=== PATIENT | female | born 1980 | race Caucasian/White ===

== ENCOUNTER 2020-12-12 09:09 | Emergency (ER) | payer OTHER ==
[2020-12-12] MEDS ORDERED: levETIRAcetam in NS 100 ML ONE (09:11)
[2020-12-12] MEDS ORDERED: Lorazepam 2 MG/ML VIAL ONE (09:14)
[2020-12-12] MEDS ORDERED: Ondansetron PF 4 MG/2 ML Vial ONE (09:19)
[2020-12-12 09:38] LABS: #Basophils 0.1 thou/uL (0.0-0.2); #Eosinphils 0.2 thou/uL (0.0-0.7); #Lymphocytes 3.1 thou/uL (1.20-3.40); #Monocytes 0.6 thou/uL (0.11-0.59); #Neutrophils 2.5 thou/uL (1.40-6.50); %Basophils 1.2 % (0.0-1.0); %Eosinophils 2.6 % (0.0-10.0); %Lymphocytes 48.4 % (21.0-51.0); %Monocytes 8.5 % (0.0-10.0); %Neutrophils 39.3 % (42.0-75.0); Hemoglobin 13.5 g/dL (12.0-16.0); Mean Corpuscular Hemoglobin 31.9 pg (27.0-31.0); Mean Corpuscular Volume 96.6 fL (78.0-98.0); Mean Platelet Volume 6.6 fL (7.4-10.4); Platelet Count 464 thou/uL (130-400); RBC Distribution Width 11.3 % (11.5-14.5); Red Blood Cell (RBC) Count 4.22 mill/uL (4.20-5.40); White Blood Cell (WBC) Count 6.4 thou/uL (4.8-10.8)
[2020-12-12 09:41] LABS: BHCG - Serum Negative (NEGATIVE); Pregs Control Background? CLEAR/WHITE (CLR/WHITE); Pregs Control Bar Appear? YES (CONTROL BAR)
[2020-12-12 09:56] LABS: Lactic Acid 1.9 mmol/L (0.5-2.2)
[2020-12-12 09:59] LABS: ALT (SGPT) 9 U/L (8-55); AST (SGOT) 17 U/L (5-34); Albumin 4.3 g/dL (3.5-5.0); Alkaline Phosphatase 48 U/L (40-110); Anion Gap 11 mmol/L (10-20); BUN (Urea Nitrogen) 13 mg/dL (7.0-18.7); Bilirubin, Total 0.3 mg/dL (0.2-1.2); Calc. Creatinine Clearance 0 mL/min (70-130); Calcium 8.6 mg/dL (7.8-10.44); Carbon Dioxide 25 mmol/L (22-29); Chloride 110 mmol/L (98-107); Globulin 2.8 g/dL (2.4-3.5); Glucose 89 mg/dL (70-105); Potassium 4.9 mmol/L (3.5-5.1); Protein, Total 7.1 g/dL (6.0-8.3); Sodium 141 mmol/L (136-145)
== END 2020-12-12 11:25 ==
LOC: ERS 09:09 → EEVIPCON 09:09 → ERS 11:25
DX: G40.909 Epilepsy, unspecified, not intractable, without status epilepticus (principal); J44.9 Chronic obstructive pulmonary disease, unspecified
CPT/HCPCS: 36415; 70450; 80053; 80177; 82140; 83605; 84146; 84703; 85025; 93005; 96374; 96375; J1953; J2060; J2405

== ENCOUNTER 2020-12-28 | Emergency (ER) | payer OTHER | END 2020-12-28 17:18 | DX: R56.9 Unspecified convulsions (principal); Z85.841 Personal history of malignant neoplasm of brain; Z79.899 Other long term (current) drug therapy | CPT/HCPCS: 36415; 70450; 80053; 82550; 83605; 84146; 84703; 85025; 93005; 95816; 95819; 95957; J1953; J2250; J2405 ==

== ENCOUNTER 2020-12-28 23:42 | Emergency (ER) | payer OTHER ==
[2020-12-28] MEDS ORDERED: Oxymetazoline HCl 0.05% (30 ML BOT) ONE (23:48)
[2020-12-29] MEDS ORDERED: cloNIDine 0.1 MG TAB ONE ×2 (00:13→00:17)
== END 2020-12-29 00:56 | disposition home or self-care (01) ==
LOC: ERS 23:42
DX: R04.0 Epistaxis (principal); Z79.899 Other long term (current) drug therapy; Q61.3 Polycystic kidney, unspecified; R56.9 Unspecified convulsions
CPT/HCPCS: 30903; 36415; 70450; 80053; 82550; 83605; 84146; 84703; 85025; 93005; 95816; 95819; 95957; 96365; 96375; J1953; J2250; J2405